=== PATIENT | female | born 2005 | race Hispanic/Latino ===

== ENCOUNTER 2025-06-02 09:00 | Emergency (ER) | payer MEDICAID ==
[~2025-06-02] VITALS: Ht 172.7 cm; Wt 99.8 kg
[2025-06-02 10:03] VITALS: BP 121/76; PULSE 85; RESP 20; TEMP 98.2; O2SAT 98
[2025-06-02] MEDS: TETRACAINE HCL 0.5% 4 ML OPHTH SOLN ONE (10:03)
[2025-06-02] MEDS: TETRACAINE HCL 0.5% 4 ML OPHTH SOLN OD ONE (10:03)
--- NOTE | 2025-06-02 10:05 | ERN ---
ED Note History of Present Illness Stated Complaint: RT EARACHE Chief Complaint: Earache Time Seen by MD: 09:04 Dictation: 20-year-old female presenting to the emergency department with a right ear pain over the past few days. Patient reports that she believes it is an ear infection saw her doctor recently who said it was ear impaction. Allergies: Coded Allergies: No Known Allergies (Unverified Allergy, Unknown, 06/02/25) Past Medical History Past Medical History: No Pertinent History Surgical History: None LMP: Feb 23, 2025 : 2 Para: 1 Aborts: 0 Review of System Dictation Constitutional: Negative for fever,chills, and weight loss Eyes: Negative for injury, pain,redness, and discharge ENT: Per HPI Cardiovascular: Negative for chest pain, palpitations, and edema Respiratory: Negative for shortness of breath, cough, and wheezing, Abdomen/GI: Negative for abdominal pain, nausea, vomiting, diarrhea, and constipation Back: Negative for injury and pain : Negative for injury, bleeding and discharge MS/Extremity: Negative for injury and deformity Skin: Negative for rash, and discoloration Neuro: Negative for headache, weakness, numbness, tingling, and seizure Psych: Negative for suicide ideation, homicidal ideation, and hallucinations Initial Vital Sign VS Vital Signs Date Time Temp Pulse Resp B/P (MAP) Pulse Ox O2 Delivery O2 Flow Rate FiO2 06/02/25 09:02 98.2 94 20 127/79 98 Room Air Physical Exam Dictation General: awake, alert, NAD Head/Face: Normocephalic, atraumatic Eyes: PERRL, EOMI, vision at baseline ENT: oral cavity clear, right ear canal is swollen, erythema Neck: Trachea midline, supple, no nuchal rigidity Cardiovascular: RRR, normal S1/S2, No MRGs, no JVD Respiratory: CTAB, no respiratory distress, No rales or wheezes Abdomen: Soft, non-tender, non-distended, normal bowel sounds, no guarding or rebound. Skin: Warm, dry, normal turgor, no rash MS/Extremity: Pulses equal, no cyanosis, neurovascular intact, FROM Neuro: COAx4, GCS 15, strength 5/5, CN 2-12 intact, normal cerebellar exam, normal gait, Psych: Normal behavior, mood, and affect normal ED Course ED Course Orders Procedure Category Date Status Time Tetracaine Hcl PHA 06/02/25 Complete (Pontocaine 0.5% 09:46 Tetracaine Hcl PHA 06/02/25 In Process (Pontocaine 0.5% 10:00 Current Medications Medications (Trade) Dose Ordered Sig/Wes Route PRN Reason Start Time Stop Time Status Last Admin Dose Admin Tetracaine HCl (Pontocaine 0.5% Ophth Soln) 2 drop ONCE ONCE OD 06/02/25 10:00 06/02/25 10:01 Tetracaine HCl (Pontocaine 0.5% Ophth Soln) 20 drop STK-MED ONCE .ROUTE 06/02/25 09:46 06/02/25 09:46 DC Vital Signs Date Time Temp Pulse Resp B/P (MAP) Pulse Ox O2 Delivery O2 Flow Rate FiO2 06/02/25 09:02 98.2 94 20 127/79 98 Room Air Medical Decision Making MDM MDM: Differential diagnosis: Rationale: Tests considered and ordered secondary to shared decision making include: Previous outside records reviewed: Old ER visits. Risk of complication and/or morbidity or mortality of patient management: None Medications-Per medication reconciliation Need for hospitalization: Patient does not meet criteria for hospitalization. Need for emergency major/minor surgery: No There are no social concerns with this patient. Prescription drug management Prescriptions will include symptomatic care Patient's prior external medical records from other ER visits were reviewed by me as indicated. Prior testing and results from previous visits were reviewed. Prior tests were taken into account with medical decision making and resource utilization, independent historian/historians were used to obtain complete medical history. I independently interpreted the test that were performed, results were reviewed by me and considered findings on radiology if ordered. Medical management and examination interpretation discussions were had by me with other qualified healthcare professionals as indicated for the patient's care. 20-year-old female with right otitis externa, stable exam, prescriptions given stable for outpatient treatment. DX & DISP Disposition: Discharge Departure Impression: Primary Impression: Right otitis externa Condition: Stable Scripts Ciprofloxacin/Hydrocortisone (Cipro Hc Otic Suspension) 0.2 %-1 % Drops.susp 3 DROP OTIC BID for 7 Days, #10 ML 0 Refills Prov: ROCHELLE DOBBINS MD 06/02/25 Referrals: YOANNA HURST MD (PCP) ROCHELLE DOBBINS MD 11, 2025 10:05
== END 2025-06-02 10:06 | disposition home or self-care (01) ==
LOC: EDH 09:00
DX: H60.91 Unspecified otitis externa, right ear (principal)
CPT/HCPCS: 99283